=== PATIENT | female | born 1970 | race Caucasian/White ===

== ENCOUNTER 2019-09-12 15:08 | Outpatient (CLI) | payer BC, SELFPAY ==
--- NOTE | 2019-09-12 14:15 | XR_ITS ---
WS: [id number] ABDOMEN 1 VIEW(S) HISTORY: URETERAL CALCULUS COMPARISON: 08/22/2019 Normal bowel gas pattern. No suspicious calcifications or masses. LEFT ureteral stent has been removed since the prior study. P reviously described calcifications in the lower pole LEFT kidney are very poorly visualized today and may not be present any longer. No bone abnormality. Prior cholecystectomy. XR/XR KUB [id number] IMPRESSION: 1. Removal of the LEFT ureteral stent. 2. Poor visualization of the calcifications lower pole LEFT kidney.
== END 2019-09-12 15:09 | disposition home or self-care (01) ==
LOC: RAD 15:15
PROVIDERS: Family Provider Nurse Practitioner Family; PCP Nurse Practitioner Family; Visit Provider Nurse Practitioner Family
DX: N20.1 Calculus of ureter (principal)
CPT/HCPCS: 74018; 87086

== ENCOUNTER → 2019-09-13 15:24 | Outpatient (BNVA) | payer BC, SELFPAY | PROVIDERS: Family Provider Nurse Practitioner Family; PCP Nurse Practitioner Family; Visit Provider Nurse Practitioner Family | DX: N20.0 Calculus of kidney (principal); R39.15 Urgency of urination; N20.1 Calculus of ureter | CPT/HCPCS: 81001 ==

== ENCOUNTER 2020-03-04 15:21 | Outpatient (CLI) | payer BC, SELFPAY ==
--- NOTE | 2020-03-04 15:26 | XRR_ITS ---
PROCEDURE INFORMATION: Exam: XR Abdomen, 1 View Exam date and time: 03/04/2020 3:30 PM Age: 49 years old Clinical indication: Condition or disease; Kidney or ureter condition; Calculus (stone) in ureter; Prior surgery; Surgery type: Hystero; Additional info: Ureteral stone lt f/u TECHNIQUE: Imaging protocol: XR of the abdomen. Views: Frontal supine view of the abdomen. 1 View. COMPARISON: CR XR KUB [id number] 09/12/2019 3:27 PM FINDINGS: Gastrointestinal tract: Normal. No bowel dilation. Metallic surgical clips seen in the right upper quadrant consistent with cholecystectomy. Bones/joints: Unremarkable. XR/XR KUB [id number] IMPRESSION: No acute findings. Status post cholecystectomy
== END 2020-03-04 15:22 | disposition home or self-care (01) ==
LOC: RADWPI 15:25
PROVIDERS: Family Provider Nurse Practitioner Family; PCP Nurse Practitioner Family; Visit Provider Urology
DX: N20.1 Calculus of ureter (principal)
CPT/HCPCS: 74018; 80053; 81001

== ENCOUNTER 2020-09-08 15:02 | Outpatient (CLI) | payer BC, SELFPAY ==
--- NOTE | 2020-09-08 15:00 | XRR_ITS ---
PROCEDURE INFORMATION: Exam: XR Abdomen, 1 View Exam date and time: 09/08/2020 3:10 PM Age: 50 years old Clinical indication: Condition or disease; Kidney or ureter condition; Calculus (stone) in ureter; Additional info: Ureteral calculus TECHNIQUE: Imaging protocol: XR of the abdomen. Views: Frontal supine view of the abdomen. 1 View. COMPARISON: CR XR KUB [id number] 03/04/2020 3:33 PM FINDINGS: Tubes, catheters and devices: Surgical clips related to cholecystectomy are noted the right upper quadrant. Gastrointestinal tract: Nonobstructive intestinal gas pattern demonstrated. Vasculature: 3 mm left pelvic calcification, which may represent left ureteral calculus versus phlebolith. No additional calcifications are seen in the abdomen or pelvis. Bones/joints: Unremarkable. XR/XR KUB [id number] IMPRESSION: 1. 3 mm left pelvic calcification, which may represent left ureteral calculus versus phlebolith. This appears new when compared to 03/04/2020. 2. No additional calcifications are seen in the abdomen or pelvis.
== END 2020-09-08 15:03 | disposition home or self-care (01) ==
PROVIDERS: Family Provider Nurse Practitioner Family; PCP Nurse Practitioner Family; Visit Provider Urology
DX: N20.1 Calculus of ureter (principal)
CPT/HCPCS: 74018; 81003

== ENCOUNTER 2021-09-14 15:27 | Outpatient (CLI) | payer BC, SELFPAY ==
--- NOTE | 2021-09-14 15:00 | XR_ITS ---
WS: [id number] Exam: XR KUB [id number] Date/Time of Exam: 09/14/2021 3:00 PM Reason For Exam: UROLITHIASIS Comparison 09/08/2020. No bowel obstruction or free air. No obvious calcifications seen in the region of the kidneys. Signs of prior cholecystectomy. Organ margins are normal in appearance. Bony structures are intact. XR/XR KUB [id number] IMPRESSION: 1. No acute abdominal process. 2. No obvious calcifications noted in the region of the kidneys.
== END 2021-09-14 15:28 | disposition home or self-care (01) ==
LOC: RAD 15:29
PROVIDERS: PCP Registered Nurse; Visit Provider Urology
DX: N20.9 Urinary calculus, unspecified (principal)
CPT/HCPCS: 74018; 81003